=== PATIENT | female | born 1965 | race Caucasian/White ===

== ENCOUNTER 2023-06-06 08:25 | Day surgery (SDC) | payer OTHER ==
[2023-05-27 10:04] VITALS: BMI 50.6
[2023-06-06] MEDS ORDERED: EPINEPHrine 1:1,000 1,000 MCG/ML ML ONE (11:15)
[2023-06-06] MEDS ORDERED: BUPIVACAINE HCL/PF 2.5 MG/ML - 30 ML VIAL IJ ONE (11:16)
[2023-06-06] MEDS ORDERED: MIDAZOLAM HCL 2 MG/2 ML SINGLE DOSE VIAL ONE (11:39)
[2023-06-06] MEDS ORDERED: PROPOFOL 20 ML ONE (11:51)
[2023-06-06] MEDS ORDERED: ONDANSETRON 4 MG/2 ML VIAL IVPUSH PRN (12:33)
[2023-06-06] MEDS ORDERED: oxyCODONE HCL 5 MG TABLET PO PRN ×2 (12:33)
[2023-06-06 13:29] VITALS: PULSE 71; TEMP 97.7
[2023-06-06 15:10] VITALS: BP 124/69; RESP 18
== END 2023-06-06 15:39 | disposition home or self-care (01) ==
LOC: FASU 08:25
PROVIDERS: ATTEND Orthopaedic Surgery
PROC: 0SBD4ZZ Excision of Left Knee Joint, Percutaneous Endoscopic Approach (ICD-10-PCS; 2023-06-06)
PROC: 0SBD4ZZ Excision of Left Knee Joint, Percutaneous Endoscopic Approach (ICD-10-PCS; principal; 2023-06-06 12:02)
DX: S83.242A Other tear of medial meniscus, current injury, left knee, initial encounter (principal); S83.282A Other tear of lateral meniscus, current injury, left knee, initial encounter; S83.8X2A Sprain of other specified parts of left knee, initial encounter; M65.862 Other synovitis and tenosynovitis, left lower leg; X58.XXXA Exposure to other specified factors, initial encounter; Y93.9 Activity, unspecified; Y92.9 Unspecified place or not applicable
CPT/HCPCS: 94760